=== PATIENT | female | born 1995 ===

== ENCOUNTER 2017-12-11 10:15 | Emergency (ER) | payer SELFPAY ==
[2017-12-11 10:25] VITALS: BP 128/92
[2017-12-11] MEDS ORDERED: Ibuprofen TAB* 600 MG PO ONE (11:08)
--- NOTE | 2017-12-11 11:14 | UC ---
Hand/Wrist HPI - HPI Summary HPI Summary: Was holding rope of a horse today, horse yanked back and injured pt's L 4th finger - History Of Current Complaint Chief Complaint: UCUpperExtremity Stated Complaint: FINGER INJURY Time Seen by Provider: 12/11/17 10:56 Hx Obtained From: Patient Hx Last Menstrual Period: 03/13/16 ?: No Onset/Duration: Sudden Onset Severity Initially: Moderate Severity Currently: Moderate Pain Intensity: 5 Character Of Pain: Dull, Aching Aggravating Factor(s): Movement Alleviating Factor(s): Rest, Ice Associated Signs And Symptoms: Positive: Swelling Related History: Dominant Hand Right - Allergies/Home Medications Allergies/Adverse Reactions: Allergies Allergy/AdvReac Type Severity Reaction Status Date / Time Penicillins Allergy Hives Verified 12/11/17 10:25 PMH/Surg Hx/FS Hx/Imm Hx Previously Healthy: Yes - Surgical History Surgical History: None - Family History Known Family History: Positive: None - Social History Occupation: Student Lives: Alone Alcohol Use: None Substance Use Type: None Smoking Status (MU): Never Smoked Tobacco Have You Smoked in the Last Year: No Review of Systems Constitutional: Negative Skin: Negative Eyes: Negative ENT: Negative Respiratory: Negative Cardiovascular: Negative Gastrointestinal: Negative Genitourinary: Negative Motor: Negative Neurovascular: Negative Musculoskeletal: Arthralgia, Decreased ROM - L 4th finger Neurological: Negative Psychological: Negative Is Patient Immunocompromised?: No All Other Systems Reviewed And Are Negative: Yes Physical Exam Triage Information Reviewed: Yes Appearance: Well-Appearing, Well-Nourished Vital Signs: Initial Vital Signs Temp 98.5 F 12/11/17 10:22 Pulse 68 12/11/17 10:22 Resp 18 12/11/17 10:22 BP 128/92 12/11/17 10:22 Pulse Ox 100 12/11/17 10:22 Vital Signs Reviewed: Yes Eye Exam: Normal Eyes: Positive: Conjunctiva Clear ENT Exam: Normal ENT: Positive: Normal ENT inspection, Hearing grossly normal, Pharynx normal, TMs normal Dental Exam: Normal Neck exam: Normal Neck: Positive: Supple, Nontender, No Lymphadenopathy Respiratory Exam: Normal Respiratory: Positive: Chest non-tender, Lungs clear, Normal breath sounds, No respiratory distress Cardiovascular Exam: Normal Cardiovascular: Positive: RRR Musculoskeletal Exam: Other - Tender over L 4th finger middle phalanx Musculoskeletal: Positive: ROM Limited @ - L 4th finger Neurological Exam: Normal Neurological: Positive: Alert Psychological Exam: Normal Skin Exam: Normal Diagnostics - Radiology No standard instances Xray Interpretation: Positive (See Comments) - L 4th finger middle phalanx fracture Radiology Interpretation Completed By: Radiologist Hand/Wrist Course/Dx - Differential Dx/Diagnosis Provider Diagnoses: L 4th finger middle phalangeal fracture closed, nondisplaced Discharge - Sign-Out/Discharge Documenting (check all that apply): Discharge - Discharge Plan Condition: Stable Disposition: HOME Patient Education Materials: Finger Fracture (ED) Referrals: Bryce Masterson MD [Medical Doctor] - 1 Week Additional Instructions: Keep the finger protected and splinted until you see the orthopedist. You may remove it for brief handwashing or showering. - Billing Disposition and Condition Condition: STABLE Disposition: HOME
--- NOTE | 2017-12-11 11:31 | RAD ---
Indication: Left fourth finger injury. 3 views of left fourth digit demonstrates oblique fracture through the middle phalanx of the fourth digit. No significant displacement is noted. IMPRESSION: Spiral fracture through the middle phalanx of the fourth digit.
== END 2017-12-11 11:45 | disposition home or self-care (01) ==
LOC: UCEAST 10:15
DX: S62.655A Nondisplaced fracture of middle phalanx of left ring finger, initial encounter for closed fracture (principal); W55.19XA Other contact with horse, initial encounter; Y93.89 Activity, other specified; Y92.9 Unspecified place or not applicable; Z88.0 Allergy status to penicillin
CPT/HCPCS: 73140; 99212; A9270-GY; G0463